=== PATIENT | male | born 1980 | race Caucasian/White ===

== ENCOUNTER → 2019-12-01 10:34 | Outpatient (CLI) | payer OTHER, SELFPAY ==
--- NOTE | 2019-12-01 11:54 | PM.TREADMILL ---
Cardiac Stress Test Report Referral & Results Date Patient Seen: 12/01/19 Time Patient Seen: 11:30 Indication: CHEST DISCOMFORT Rest ECG: SINUS @ 59 BPM Procedure Note: 1. STANDARD YVES PROTOCOL, 10 MIN 05 SEC, 12.8 METS. 2. NORMAL EXERCISE CAPACITY, JUAN -1%. 3. NORMAL HEMODYNAMIC RESPONSE TO EXERCISE. 4. DEVELOPED 2-3/10 CHEST ACHE JUST RIGHT OF STERNAL BORDER THAT QUICKLY RESOLVED IN RECOVERY. 5. RESTING ECG SINUS RHYTHM; NO ST SHIFTS, NO ECTOPY. Impression: MIBI TO FOLLOW Please note: Actual ECG tracings can be found in the PACS system.
--- NOTE | 2019-12-12 14:17 | DI.NM.S_ITS ---
DATE OF SERVICE: PROCEDURE: Exercise perfusion study. INDICATION: Recurrent chest pain, palpitation, dizziness. RADIOPHARMACEUTICAL: 28.4 mCi technetium-99m Myoview IV was injected at stress and 24.6 mCi technetium-99m Myoview IV was injected at rest. FINDINGS: CARDIAC STRESS: The patient underwent exercise perfusion study under the supervision of attending staff. He walked on Skyler protocol for 10 minutes 05 seconds and achieved 96 percent of target heart rate, normal blood pressure response., 12.8 METS of workload and functional aerobic impairment was positive 15 percent. Baseline EKG revealed sinus rhythm. During stress, there were no convincing ischemic changes. No significant arrhythmia was seen. The patient developed slight chest discomfort on the right sternal border, which got completely resolved during recovery period. There is increased subdiaphragmatic activity. GATED STUDY: The stress LV ejection fraction is 77 percent and resting LV ejection fraction is 73 percent. No transient ischemic dilatation. TID ratio is 0.75, which is within normal limits. Resting end-diastolic velocity 103 mL. Lung-heart ration 0.24, which is within normal limits. MYOCARDIAL PERFUSION: Stress supine, resting supine and stress prone images were compared to each other. There is a normal myocardial perfusion. CONCLUSION: 1. This is a normal myocardial perfusion study. 2. The patient walked on Skyler protocol for 10 minutes 05 seconds, achieved 12.8 METS of workload. Normal hemodynamic response. No ischemic changes. No ischemic arrhythmias. 3. Overall, this is a low risk myocardial perfusion study. Liban Gonzales - TANKER DRIVER/nadia/marilee doc#: [id number]/job#: [id number] dd: 12/04/2019 17:40:00 dt: 12/05/2019 04:02:00 DICTATING MD/COPIES TO: Deborah Cerda MD COPIES MNE: TOM;
== END ==
PROVIDERS: Visit Provider Nurse Practitioner
DX: R07.89 Other chest pain (principal)
CPT/HCPCS: 78452; 93016; 93017; 93018; A9502

== ENCOUNTER → 2019-12-08 15:27 | Outpatient (CLI) | payer OTHER, SELFPAY ==
--- NOTE | 2019-12-08 | DI.ECHO.S_ITS ---
[facility]---------+ [facility] +---------+ : : [address] [place] : : : : [id number] : : : : Phone: [phone]---------+ Echocardiogram Report + + :Name: BURAK GARCÍA Study Date: 12/08/2019 Height: 70 in : :[facility] Weight: 215 lb : : Gender: Male BSA: 2.2 m2 : :: 1980 Age: 39 yrs BP: 121/96 mmHg: :Reason For Study: Chest pain : :Ordering Physician: Martir Mcwilliams Performed By: Raven Page : + + Interpretation Summary The left ventricle is normal in size, wall thickness, and systolic function without any focal wall motion abnormalities. The ejection fraction is estimated to be 60-65%. Diastolic parameters suggest probable normal left ventricular diastolic function and normal filling pressures. The right ventricle is normal in size and function. Pulmonary artery pressures cannot be estimated because of the lack of a measurable TR jet velocity. The left atrium is mildly dilated. Right atrial size is normal. There is no significant valvular heart disease. The aortic root is normal size. Compared to the prior echo report on 08/20/2017, there is no significant change. Procedure: A two-dimensional transthoracic echocardiogram with color flow and Doppler was performed. The study quality was technically adequate. Comparison is made with the echocardiogram of 08/20/2017. The patient was in normal sinus rhythm during the exam. Left Ventricle: The left ventricle is normal in size, wall thickness, and systolic function without any focal wall motion abnormalities. The ejection fraction is estimated to be 60-65%. Diastolic parameters suggest probable normal left ventricular diastolic function and normal filling pressures. Right Ventricle: The right ventricle is normal in size and function. Atria: The left atrium is mildly dilated. Right atrial size is normal. There is no Doppler evidence for an interatrial shunt. Mitral Valve: The mitral valve is normal in structure and function. There is trace mitral regurgitation. Aortic Valve: The aortic valve is trileaflet. The aortic valve opens well. No aortic regurgitation is present. Tricuspid Valve: The tricuspid valve is normal in structure and function. There is a trace or physiologic amount of tricuspid regurgitation. Pulmonary artery pressures cannot be estimated because of the lack of a measurable TR jet velocity. Pulmonic Valve: The pulmonic valve is not well seen, but is grossly normal. There is a trace or physiologic amount of pulmonic regurgitation. There is no significant valvular heart disease. Great Vessels: The aortic root is normal size. The ascending aorta is normal in size. The pulmonary artery is not well visualized, but is probably normal size. The IVC is of normal diameter and collapses greater than 50% with a sniff. This suggests a low right atrial pressure of 3 mm Hg. Pericardium/ Pleura There is no pericardial effusion. There is no pleural effusion. MMode/2D Measurements & Calculations LVIDd: 5.1 cm LVOT diam: 2.0 cm LVIDs: 3.9 cm Ao root diam: 3.4 cm FS: 24.1 % asc Aorta Diam: 3.1 cm IVSd: 0.94 cm LVPWd: 0.69 cm LV clements. diameter/BSA (cm/m^2): 2.4 LV sys. diameter/BSA (cm/m^2): 1.8 LA A2 area: 21.3 cm2 RA long axis: 4.8 cm LA A4 area: 23.3 cm2 RA area: 17.4 cm2 LA length (vol): 5.5 cm RA vol: 53.5 ml LA vol: 76.6 ml RA : 24.9 ml/m2 LA vol index: 35.6 ml/m2 IVC diam: 1.4 cm Doppler Measurements & Calculations LVOT Max Kevin: 107.6 cm/sec MV E max kevin: 72.8 cm/sec LV V1 max P.6 mmHg MV A max kevin: 62.7 cm/sec LV V1 VTI: 20.6 cm MV E/A: 1.2 Med Peak E' Kevin: 8.1 cm/sec E/E' med: 9.0 Lat Peak E' Kevin: 13.3 cm/sec E/E' lat: 5.5 E/e' average: 7.2 MV dec time: 0.18 sec MV P1/2t: 53.1 msec PA V2 max: 70.5 cm/sec MV P1/2t max kevin: 72.1 cm/sec PA V2 mean: 45.1 cm/sec MVA(P1/2t): 4.1 cm2 PA mean P.94 mmHg PA Accel Time: 0.12 sec SV(LVOT): 66.9 ml Reading Physician:05:24 PM
== END ==
PROVIDERS: Visit Provider Nurse Practitioner
DX: R07.9 Chest pain, unspecified (principal)
CPT/HCPCS: 93306

== ENCOUNTER → 2020-03-11 12:43 | Outpatient (CLI) | payer OTHER, SELFPAY ==
--- NOTE | 2020-03-11 | DI.MRI.S_ITS ---
PROCEDURE: MR KNEE RT WO CON INDICATIONS: Pain in unspecified knee TECHNIQUE: Noncontrast sagittal PD fast spin echo and T2 fast spin echo with fat saturation, sagittal 3-D FLASH with fat saturation; coronal T1 spin echo and PD fast spin echo with fat saturation, and axial PD fast spin echo with fat saturation through the knee. COMPARISON: [facility], MR, MR KNEE LT WO CON, 03/11/2020, 13:23. FINDINGS: Image quality: Excellent. Menisci: Medial meniscus intact. Lateral meniscus intact. Cruciate ligaments: Anterior cruciate ligament appears intact. Posterior cruciate ligament appears intact. Medial structures: The medial collateral ligament appears intact. Mild semimembranosus insertional tendinopathy. Visualized portions of the pes anserinus tendons appear normal. No abnormal bursal fluid. Lateral structures: The lateral collateral ligament intact. Biceps femoris tendon appears intact. Popliteus tendon grossly unremarkable. Iliotibial band appears intact. Anterior structures: Quadriceps tendon intact. Medial and lateral patellofemoral ligaments intact. There is mild patellar tendinopathy. Prepatellar and superficial infrapatellar subcutaneous edema/fluid. Bones and cartilage: No focal marrow contusion or discrete low signal fracture line. Within the medial compartment, no focal cartilage defect Within the lateral compartment, no focal cartilage defect Within the patellofemoral compartment, not focal cartilage defect Joint space: No joint effusion. Small Thomas's cyst measuring 3 cm in the cephalocaudad dimension. No specific evidence of intra-articular loose body. IMPRESSION: Mild patellar tendinopathy and adjacent edema/fluid. Mild semimembranosus insertional tendinopathy. No internal derangement. Small Thomas's cyst Dictated by: Ramiro Chen M.D. on 03/11/2020 at 15:10 Approved by: Ramiro Chen M.D. on 03/11/2020 at 15:40
--- NOTE | 2020-03-11 | DI.MRI.S_ITS ---
PROCEDURE: MR KNEE LT WO CON INDICATIONS: Pain in unspecified knee TECHNIQUE: Noncontrast sagittal PD fast spin echo and T2 fast spin echo with fat saturation, sagittal 3-D FLASH with fat saturation; coronal T1 spin echo and PD fast spin echo with fat saturation, and axial PD fast spin echo with fat saturation through the knee. COMPARISON: None. FINDINGS: Image quality: Excellent. Menisci: Medial meniscus intact. Lateral meniscus intact. Cruciate ligaments: Anterior cruciate ligament appears intact. Posterior cruciate ligament appears intact. Medial structures: The medial collateral ligament appears intact. Semimembranosus tendon appears intact. Visualized portions of the pes anserinus tendons appear normal. No abnormal bursal fluid. Lateral structures: The lateral collateral ligament intact. Biceps femoris tendon appears intact. Popliteus tendon grossly unremarkable. Iliotibial band appears intact. Anterior structures: Quadriceps tendon intact. Medial and lateral patellofemoral ligaments intact. Minimal proximal patellar tendinopathy. Hoffa's fat pad unremarkable. Bones and cartilage: No focal marrow contusion or discrete low signal fracture line. Within the medial compartment, no cartilage defect Within the lateral compartment, no focal cartilage defect Within the patellofemoral compartment, or focal cartilage defect Joint space: No joint effusion. Tiny subcentimeter Thomas's cyst. No specific evidence of intra-articular loose body. IMPRESSION: Minimal proximal patellar tendinopathy No internal derangement Tiny Thomas cyst. Dictated by: Ramiro Chen M.D. on 03/11/2020 at 14:43 Approved by: Ramiro Chen M.D. on 03/11/2020 at 14:56
== END ==
PROVIDERS: Referring Provider Physician Assistant; Visit Provider Physician Assistant
DX: M25.562 Pain in left knee (principal); M25.561 Pain in right knee; M71.21 Synovial cyst of popliteal space [Baker], right knee; M67.961 Unspecified disorder of synovium and tendon, right lower leg
CPT/HCPCS: 73721